=== PATIENT | female | born 1985 | race African-American/Black ===

== ENCOUNTER 2018-10-01 16:10 | Emergency (ER) | payer OTHER ==
[~2018-10-01] VITALS: Wt 78.9 kg
[2018-10-01 16:14] VITALS: BP 143/78; PULSE 78; RESP 18
--- NOTE | 2018-10-01 16:50 | EN ---
Date/Time of Note Date/Time of Note DATE: 10/01/18 TIME: 16:50 ER Progress Note [id number] female presented to the emergency department complaining of pelvic cramping secondary to her menstrual cycle. She is requesting pain medication here for severe pain. She will be sent to ED 2 for further evaluation and treatment. WILLY SALTER PA-C October 01, 2018 16:50
--- NOTE | 2018-10-01 17:55 | ERD ---
ER Documentation Chief Complaint Chief Complaint REFILL OF NORCO AND CLONAZEPAM, ON MENSES HAS CRAMPING HPI 33-year-old female past medical history of anxiety, IBS, dysmenorrhea presents for prescription refill of Plains and clonazepam. Patient states she been having abdominal cramping related to her menses but otherwise denies heavy vaginal bleeding, of your pelvic pain. Cures report significant for multiple visits to different providers for prescription refills for clonazepam as well as Plains over the past year. Patient states she takes clonazepam to help with sleep as well as anxiety. Patient states that she is recently moved and is trying to establish care in her new city. Reports to have being followed by pain management in the past but not currently. Informed patient that she needs to establish care with her primary care provider who can coordinate her care including management of her chronic pain. She otherwise is without complaint denying chest pain, shortness of breath, dyspnea, nausea, vomiting, diarrhea, abdominal pain. Time examination patient is sitting comfortably in no acute distress answering all questions appropriately. ROS All systems reviewed and are negative except as per history of present illness. FmHx Family History: No diabetes, No coronary disease, No other Physical Exam Vitals Vital Signs Date Temp Pulse Resp B/P (MAP) Pulse Ox O2 O2 Flow FiO2 Time Delivery Rate 10/01/18 98.1 78 18 143/78 99 16:14 (99) Physical Exam I have reviewed the triage vital signs. Const: Well nourished, well developed, appears stated age Eyes: PERRL, no conjunctival injection HENT: NCAT, Neck supple without meningismus CV: RRR, Warm, well-perfused extremities RESP: CTAB, Unlabored respiratory effort GI: soft, non-tender, non-distended, no masses MSK: No gross deformities appreciated Skin: Warm, dry. No rashes Neuro: grossly non focal Psych: Appropriate mood and affect. Results 24 hrs Current Medications Medications Dose Sig/Vania Start Time Status Last (Trade) Ordered Route PRN Stop Time Admin Dose Reason Admin 1 tab ONCE ONCE 10/01/18 Acetaminophen PO 18:00 / 10/01/18 18:01 Hydrocodone Bitart (Plains (7.5-325)) Procedures/MDM 33-year-old female with history of dysmenorrhea who presents with abdominal cramping during menses. Cures review significant for multiple prescriptions filled for clonazepam as well as Plains. Instructed patient she needs to follow-up with PMD in order to establish care with pain management to do with her chronic pain issues. I have low suspicion for intra-abdominal intrapelvic process requiring further emergent care or management. Course: Single dose of Plains, given patient's history of recent multiple Rx filled and written by multiple providers will not discharge with any prescriptions for Plains or clonazepam, started patient to follow-up with PMD and establish care with pain management for management of chronic pain Patient offered Toradol and refused DISPOSITION PLAN: We discussed follow up with the patient's primary care doctor within 24 to 48 hours. Patient counseled regarding my diagnostic impression and care plan. Prior to discharge all questions answered. Pt agrees with treatment plan and understands strict return precautions. Precautionary instructions provided including instructions to return to the ER if not improving or for any worsening or changing symptoms or concerns. Disclaimer: Inadvertent spelling and grammatical errors are likely due to EHR/dictation software use and do not reflect on the overall quality of patient care. Also, please note that the electronic time recorded on this note does not necessarily reflect the actual time of the patient encounter. Departure Diagnosis: Primary Impression: Encounter for medication refill Condition: Stable Patient Instructions: Taking Medicine Safely Referrals: SARAHY FRAIRE (PCP) Additional Instructions: Call your primary care doctor TOMORROW for an appointment during the next 2-3 days.See the doctor sooner or return here if your condition worsens before your appointment time. JAD RAMIREZ PA-C October 01, 2018 17:54
[2018-10-01] MEDS ORDERED: HYDROCODONE/APAP (7.5/325) TAB PO ONE (18:00)
[2018-10-01] MEDS ORDERED: ALPR0.5T PO (18:11)
[2018-10-01] MEDS ORDERED: IBUP-1542 PO (18:14)
== END 2018-10-01 18:19 | disposition home or self-care (01) ==
LOC: E/R 16:10 → FTE 18:19
DX: Z76.0 Encounter for issue of repeat prescription (principal)
CPT/HCPCS: Z7502; Z7610; 99281